=== PATIENT | male | born 2000 | race Two or more races ===

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

== ENCOUNTER 2019-04-01 12:11 | Emergency (ER) | payer MEDICAID ==
--- NOTE | 2019-04-01 13:00 | NUR ---
Pt not in lobby at this time
--- NOTE | 2019-04-01 13:15 | NUR ---
pt not in lobby at this time
--- NOTE | 2019-04-01 13:30 | NUR ---
Pt not in lobby at this time
== END 2019-04-01 13:42 | disposition left against medical advice (07) ==
LOC: ED 13:40
DX: Z53.21 Procedure and treatment not carried out due to patient leaving prior to being seen by health care provider (principal)